=== PATIENT | female | born 1990 | race Caucasian/White ===

== ENCOUNTER 2020-04-23 07:20 | Inpatient (IN) | payer OTHER ==
[2020-04-23] MEDS ORDERED: Sodium Chloride 0.9% 10 ML Syringe FLUSH PRN (07:53)
[2020-04-23] MEDS ORDERED: Ondansetron 4 MG/2 ML SDV IVPUSH PRN (07:53)
[2020-04-23] MEDS ORDERED: Oxytocin/Lactated Ringers 10 UNIT/1,000 ML BAG IV SCH ×2 (08:00)
[2020-04-23] MEDS ORDERED: Lactated Ringers 1,000 ML IV SCH (08:00)
--- NOTE | 2020-04-23 10:50 | PCM.LDHP ---
L&D History of Present Illness - General Date of Service: 04/23/20 Admit Problem/Dx: Patient Status Order with Admit Dx/Problem 04/23/20 07:31 Patient Status [ADT] Routine 04/23/20 07:53 Patient Status [ADT] Routine Theresa is a 29-year-old 1 para 0 white female who is presently at 40-2/7 weeks gestational age with an EDGAR of 04/21/2020 who is admitted in active labor with the advanced cervical dilation 6 cm and questionable SROM. Source of Information: Patient History Limitations: Reports: No Limitations - History of Present Illness Introduction:: Theresa is a 29-year-old 1 para 0 white female who is presently at 40-2/7 weeks gestational age with an EDGAR of 04/21/2020 who is admitted in active labor with the advanced cervical dilation 6 cm and questionable SROM. She reports a gush of fluid sometime within the last 20 hours. She was able to rest however and did not have any other leakage of significance. She is started in labor at approximately 0100 hrs. on 04/23/2020 has progressed to izaiah every 3 to 4 minutes. Upon admission her cervix was found to be 6 cm dilated and significantly effaced. There is a bulging bag fierro that was detected upon admission. This has now been ruptured with resultant clear amniotic fluid. heart tones are reassuring. GILL NET STRINGER history: 1 para 0. EDGAR is 04/21/2020 as based upon a certain last menstrual period starting 07/08/2019 and supported by at least 3 ultrasounds on 09/26/2019, 09/09/2019 and 11/22/2019. Patient had menarche at age 15. Cycles q. 28 to 30 days. No control time conception. Last menstrual period was fairly certain. Cycles occur on a regular basis. No STIs or abnormal Pap smears noted. course: Patient's first visit was on 09/26/2019 at 10-2/7 weeks gestational age. She was seen on a very regular basis during the course of the . Her weight gain was approximately 37 pounds. Her vital signs remained stable throughout the course. Patient is interested in doing epidural if needed. She is group B strep negative. She had a flu shot during t he course of on 09/26/2019. She plans to breast-feed. Her [place] depression screen score on 11/22/2019 was 5/30. Patient had her Tdap immunization on 02/06/2020. She is rubella immune. Fundal height growth has been appropriate. heart tones have been within normal and send baby has been active by patient's history. Laboratory testing in shows blood to be AB positive. Antibody screen is negative. Initial first needle laboratory tests show hemoglobin at 13.8 g/dL weightless of 337,000. She is rubella immune. RPR is nonreactive. Urine culture was negative. Hepatitis B surface antigen and HIV assays were both negative. Her chlamydia and gonorrhea assays both negative. Second trimester hemoglobin was 12.4 g/dL and platelets were 299,000. Her 1 hour GTT was normal at 107. Group B strep screen was negative. Allergies: None Medications: 1. vitamins daily 2. Tums as needed for antacid Past medical history: Unremarkable Past surgical history: 1. Tonsillectomy 2011 Family history: Mother is alive and well on medications for high blood pressure. Father is alive and well. Brother is alive and well. Sister is alive and well. Maternal grandmother is alive at age 64 with a stent placed due to heart disease. Maternal grandfather is alive with history of type 2 diabetes that is diet-controlled. Paternal grandmother and paternal grandfather's history are unknown. She knows of no family history of cancer, bleeding or clotting disorders, anesthesia related issues, asthma or related problems. Social history: Patient is . is Kenneth Wong. She is a sales project coordinator. She is a college graduate. [place], [place]. She does not use any significant also alcohol, drugs or tobacco. Review of systems: In general patient has no complaints. Questionable gush of fluid. Suspect insensible urine loss. Contractions, baby is active. Skin: Negative Lungs: No infectious symptoms or shortness of breath Cardiovascular: No chest pain or exercise intolerance Breasts: Changes associated GI: Negative : changes Musculoskeletal: Negative Neurological: Negative Physical exam: In general the patient is well-developed, well-nourished, pleasant female of stated age in no acute distress. Skin is warm dry without lesions. HEENT, neck and back within normal limits. Lungs are clear with good breath sounds in all lung diallo. Cardiovascular exam shows regular and rhythm without murmurs. Breast exam deferred having been done at first visit and found to be normal it is not repeated at this time. Patient does plan to breast-feed. Abdomen is gravid with last fundal height at her last visit at 38+ centimeters. Baby in a cephalic presentation. Genital exam per digital evaluation shows 6 cm, 90% face, bulging bag fierro which is ruptured with resultant clear amniotic fluid. -3 station but well applied to the cervix, mid position, soft. Extremities and neurological exam are grossly within normal limits. - Related Data Allergies/Adverse Reactions: Allergies Allergy/AdvReac Type Severity Reaction Status Date / Time No Known Allergies Allergy Verified 04/23/20 08:05 Home Medications: Home Meds Pnv No.95/Ferrous Fum/Folic AC [ Tablet] 1 each PO DAILY 04/23/20 [History] Past Medical History GILL NET STRINGER History: Reports: - Past Surgical History HEENT Surgical History: Reports: Tonsillectomy Social & Family History - Family History Family Medical History: Noncontributory - Tobacco Use Smoking Status *Q: Never Smoker Second Hand Smoke Exposure: No - Caffeine Use Caffeine Use: Reports: None - Recreational Drug Use Recreational Drug Use: No H&P Review of Systems - Review of Systems: Review Of Systems: See Below L&D Exam - Exam Exam: See Below - Vital Signs Vital Signs: Last Vital Signs Temp 37.0 C 04/23/20 07:31 Pulse 76 04/23/20 07:31 Resp 14 04/23/20 07:31 BP 133/84 04/23/20 07:31 Pulse Ox 99 04/23/20 07:31 Weight: 95.753 kg - Patient Data Lab Results Last 24 hrs: Laboratory Results - last 24 hr 04/23/20 04/23/20 Range/Units 07:57 08:06 WBC 10.66 H (3.98-10.04) K/mm3 RBC 4.59 (3.98-5.22) M/mm3 Hgb 13.0 (11.2-15.7) gm/dl Hct 38.4 (34.1-44.9) % MCV 83.7 D (79.4-94.8) fl MCH 28.3 (25.6-32.2) pg MCHC 33.9 (32.2-35.5) g/dl RDW Std Deviation 41.3 (36.4-46.3) fL Plt Count 295 (182-369) K/mm3 MPV 10.7 (9.4-12.3) fl Neut % (Auto) 71.6 H (34.0-71.1) % Lymph % (Auto) 21.2 (19.3-51.7) % [place] % (Auto) 6.2 (4.7-12.5) % Eos % (Auto) 0.4 L (0.7-5.8) Baso % (Auto) 0.1 (0.1-1.2) % Neut # (Auto) 7.64 H (1.56-6.13) K/mm3 Lymph # (Auto) 2.26 (1.18-3.74) K/mm3 [place] # (Auto) 0.66 H (0.24-0.36) K/mm3 Eos # (Auto) 0.04 (0.04-0.36) K/mm3 Baso # (Auto) 0.01 (0.01-0.08) K/mm3 SARS-CoV-2 RNA (JEFF) Negative (NEGATIVE) Result Diagrams: 04/23/20 08:06 Problem List Initiated/Reviewed/Updated: Yes Orders Last 24hrs: Active Orders 24 hr Category Date Time Status Patient Status [ADT] Routine ADT 04/23/20 07:31 Active Patient Status [ADT] Routine ADT 04/23/20 07:53 Active Activity as Tolerated [RC] PFP Care 04/23/20 07:53 Active Communication Order [RC] ASDIRECTED Care 04/23/20 07:53 Active Heart Tones [RC] ASDIRECTED Care 04/23/20 07:54 Active Non Stress Test [RC] PER UNIT ROUTINE Care 04/23/20 07:31 Active Notify Provider [RC] PFP Care 04/23/20 07:53 Active Notify Provider [RC] PRN Care 04/23/20 07:53 Active Peripheral IV Care [RC] . DIRECTED Care 04/23/20 07:54 Active Vital Signs [RC] PER UNIT ROUTINE Care 04/23/20 07:31 Active Vital Signs [RC] PER UNIT ROUTINE Care 04/23/20 07:53 Active Regular Diet [DIET] Diet 04/23/20 Breakfast Active BLOOD BANK HOLD SPECIMEN [BBK] Stat Lab 04/23/20 07:53 Ordered RAPID PLASMA REAGIN,RPR [CHEM] Routine Lab 04/23/20 08:06 Received Lactated Ringers [Ringers, Lactated] 1,000 ml Med 04/23/20 08:00 Active IV ASDIRECTED Nalbuphine [Nubain] Med 04/23/20 07:53 Active 10 mg IVPUSH Q2H PRN Ondansetron [Zofran] Med 04/23/20 07:53 Active 4 mg IVPUSH Q4H PRN Oxytocin/Lactated Ringers [Pitocin in LR 10 Units/1,000 Med 04/23/20 08:00 Active ML] 10 unit in 1,000 ml IV .CONTINUOUS Oxytocin/Lactated Ringers [Pitocin in LR 10 Units/1,000 Med 04/23/20 08:00 Active ML] 10 unit in 1,000 ml IV TITRATE Sodium Chloride 0.9% [Saline Flush] Med 04/23/20 07:53 Active 10 ml FLUSH ASDIRECTED PRN Electronic Heart Tones Ext w TOCO [WOMSER] Oth 04/23/20 07:53 Ordered Routine Electronic Heart Tones Internal [WOMSER] Per Unit Oth 04/23/20 07:53 Ordered Routine Peripheral IV Insertion Adult [OM.PC] Routine Oth 04/23/20 07:53 Ordered Resuscitation Status Routine Resus Stat 04/23/20 07:31 Ordered Medication Orders Lactated Ringer's (Ringers, Lactated) 1,000 mls @ 100 mls/hr IV ASDIRECTED BOAZ Oxytocin/Lactated Ringer's (Pitocin In Lr 10 Units/1,000 Ml) 10 unit in 1,000 mls @ 500 mls/hr IV .CONTINUOUS BOAZ Oxytocin/Lactated Ringer's (Pitocin In Lr 10 Units/1,000 Ml) 10 unit in 1,000 mls @ 12 mls/hr IV TITRATE BOAZ; Protocol Nalbuphine HCl (Nubain) 10 mg IVPUSH Q2H PRN PRN Reason: Pain Ondansetron HCl (Zofran) 4 mg IVPUSH Q4H PRN PRN Reason: Nausea/Vomiting Sodium Chloride (Saline Flush) 10 ml FLUSH ASDIRECTED PRN PRN Reason: Keep Vein Open Assessment/Plan Comment:: 1. 40-2/7-week intrauterine , spontaneous labor, advanced cervical dilation, clear amniotic fluid, reassuring heart tones 2. Group B strep screen is negative 3. Patient plans to breast-feed. 4. Wishes natural labor but is okay with epidural if needed 5. Rubella immune 6. Patient is received her Tdap during the course of the 7. Risk Plan: 1. Anticipate normal spontaneous vaginal liver 2. Routine labor care 3. CBC, COVID testing, RPR upon admission per protocol 4. Epidural as needed for patient desire 5. Support patient is breast-feeding plan.
[2020-04-23] MEDS: Nalbuphine 10 MG/ML Syringe IVPUSH PRN ×2 (11:14→14:58)
[2020-04-23] MEDS ORDERED: Lidocaine 1% 50 ML MDV ONE (17:10)
--- NOTE | 2020-04-23 17:35 | PCM.SN.2 ---
- Free Text/Narrative Note: Delivery note: Theresa is a 29-year-old 1 now para 1-0-0-1 white female who is admitted this a.m. in active labor with advanced cervical dilation with a gestational age of 40-2/7 weeks with an EDGAR of 04/21/2020. She is 6 cm upon admission. She went slowly to 10 cm dilation by approximately 1500 hrs. Patient had 3 doses of Nubain during the course of labor for analgesia. She began pushing and at 1706 delivered a viable, dominguez, male infant with Apgars of 8 and 9, a weight of 7 #, 14 oz, (3570 grams), a length of 21 inches, direct occiput anterior position. The baby had nuchal cord x1 which was moderately tight and was reduced over the baby's body. After delivery the baby was placed on mom's ab domen. Umbilical cord was allowed to pulsate for 2 to 3 minutes. The Pitocin was increased to 500 cc an hour to facilitate increase in uterine tone and decrease likelihood of bleeding. The umbilical cord was allowed to pulsate and then was clamped x2 and cut by the baby's Father Kenneth. 3 blood vessels were noted in the cord. Cord blood was obtained. Patient was noted to have a second-degree perineal laceration which was repaired with 3-0 Monocryl after the infiltration of the area with approximately 10 cc of lidocaine 1%. Patient tolerated this well. Placenta delivered in a Masterson reason Tatian, appeared intact and complete and was discarded per patient desire. Patient plans to breast-feed. Estimated blood loss was 100 cc. Condition: Good
[2020-04-23] MEDS ORDERED: Ibuprofen 600 MG Tab PO PRN (17:52)
[2020-04-23] MEDS ORDERED: Benzocaine/Menthol 20%-0.5% Spray 56 GM Canister TOP PRN (17:52)
[2020-04-23] MEDS ORDERED: Docusate Sodium 100 MG Cap PO PRN (17:52)
[2020-04-23] MEDS ORDERED: Witch Hazel Medicated Pads 40/Jar TOP PRN (17:52)
[2020-04-23] MEDS ORDERED: Acetaminophen 325 MG Tab PO PRN (17:52)
--- NOTE | 2020-04-24 06:47 | PCM.SN.2 ---
- Free Text/Narrative Note: note: Patient is doing well in the period. Minimal lochia, voiding well, ambulated without problems. Nursing without concerns. Patient is afebrile, vital signs are stable Abdomen is flat, soft, uterus is below the umbilicus and is firm and nontender. Legs are nontender. Assessment: recovery going well. Plan: Routine care. Patient be discharged home within the next 24-48 hours.
[2020-04-24] MEDS ORDERED: FLU VACC QS2020-21(6MOS UP)/PF 60 MCG/0.5 ML SYRINGE IM ONE (09:00)
[2020-04-24] MEDS: Prenatal Multivitamin with Calcium/Folic Acid/Iron Tab PO SCH (09:33)
--- NOTE | 2020-04-25 06:38 | PCM.DCSUM1 ---
Discharge Summary - Hospital Course Free Text/Narrative:: Theresa is a 29-year-old 1 now para 1-0-0-1 white female who is admitted this a.m. in active labor with advanced cervical dilation with a gestational age of 40-2/7 weeks with an EDGAR of 04/21/2020. She is 6 cm upon admission. She went slowly to 10 cm dilation by approximately 1500 hrs. Patient had 3 doses of Nubain during the course of labor for analgesia. She began pushing and at 1706 delivered a viable, dominguez, male with Apgars of 8 and 9, a weight of 7 #, 14 oz, (3570 grams), a length of 21 inches, direct occiput anterior position. The baby had nuchal cord x1 which was moderately tight and was reduced over the baby's body. After delivery the baby was placed on mom's abdomen. Umbilical cord was allowed to pulsate for 2 to 3 minutes. The Pitocin was increased to 500 cc an hour to facilitate increase in uterine tone and de crease likelihood of bleeding. The umbilical cord was allowed to pulsate and then was clamped x2 and cut by the baby's Father Kenneth. 3 blood vessels were noted in the cord. Cord blood was obtained. Patient was noted to have a second-degree perineal laceration which was repaired with 3-0 Monocryl after the infiltration of the area with approximately 10 cc of lidocaine 1%. Patient tolerated this well. Placenta delivered in a Masterson presentation, appeared intact and complete and was discarded per patient desire. Patient plans to breast-feed. Estimated blood loss was 100 cc. patient is doing very well. She has had minimal lochia, is voiding well, ambulated without problems. Breast-feeding is going well. Patient is desiring discharge home. Condition: Good Diagnosis: Stroke: No - Discharge Data Discharge Date: 04/25/20 Discharge Disposition: Home, Self-Care 01 Condition: Good - Referral to Home Health Primary Care Physician: Valeri Miller PA-C - Patient Instructions Diet: Regular Diet as Tolerated (Nursing diet with increased calories and calcium as directed.) Activity: As Tolerated (No intercourse or tampons until bleeding resolves) Driving: May Drive Today Showering/Bathing: May Shower Showering/Bathing, Other: May take a bath - Discharge Plan Home Medications: Home Meds Pnv No.95/Ferrous Fum/Folic AC [ Tablet] 1 each PO DAILY 04/23/20 [History] Acetaminophen [Tylenol] 650 mg PO Q4H PRN tablet 04/25/20 [Rx] Docusate Sodium [Colace] 100 mg PO BID PRN cap 04/25/20 [Rx] Ibuprofen [Motrin] 600 mg PO Q4H PRN tablet 04/25/20 [Rx] Referrals: Sravan Valverde MD [Physician] - (Return to clinicDr. Valverde or Sarah Pedro, nurse practitioner-in 2 weeks.) - Discharge Summary/Plan Comment DC Time >30 min.: No Discharge Summary/Plan Comment: Discharge instructions: 1. Discharge home 2. Diet, activity and follow-up discussed with patient. Recommend nursing diet with increased calories and calcium. 3. Precautions given concern increased pain, bleeding, temperature, signs/symptoms of DVT/PE. 4. Medications per home medication was printed, discussed with and given to the patient. 5. Return to clinic-Dr. Valverde or Sarah Pedro-[facility] [place] in 2 weeks. Diagnosis: Term -delivered Condition: Good - Patient Data Vitals - Most Recent: Last Vital Signs Temp 36.7 C 04/25/20 02:49 Pulse 76 04/25/20 02:49 Resp 16 04/25/20 02:49 BP 118/73 04/25/20 02:49 Pulse Ox 98 04/25/20 02:49 Weight - Most Recent: 95.753 kg I&O - Last 24 hours: Intake & Output 04/24/20 04/24/20 04/25/20 14:59 22:59 06:59 Intake Total 0 Balance 0 Med Orders - Current: Current Medications Acetaminophen (Tylenol) 650 mg PO Q4H PRN PRN Reason: mild pain or fever Benzocaine/Menthol (Dermoplast Pain Relief [place]) 0 gm TOP ASDIRECTED PRN PRN Reason: Perineal Comfort Measure Last Admin: 04/23/20 19:34 Dose: 1 can Documented by: Docusate Sodium (Colace) 100 mg PO BID PRN PRN Reason: Constipation Ibuprofen (Motrin) 600 mg PO Q4H PRN PRN Reason: Mild pain or fever Last Admin: 04/23/20 19:33 Dose: 600 mg Documented by: Maria Esther Multivit/[place]/Iron/Folic Ac ( Plus Iron) 1 each PO DAILY BOAZ Last Admin: 04/24/20 09:33 Dose: 1 each Documented by: William Arevalo ([facility]) 1 pad TOP ASDIRECTED PRN PRN Reason: Perineal Comfort Measure Last Admin: 04/23/20 19:34 Dose: 1 container Documented by: Discontinued Medications Lactated Ringer's (Ringers, Lactated) 1,000 mls @ 100 mls/hr IV ASDIRECTED BOAZ Last Admin: 04/23/20 14:36 Dose: 100 mls/hr Documented by: Oxytocin/Lactated Ringer's (Pitocin In Lr 10 Units/1,000 Ml) 10 unit in 1,000 mls @ 500 mls/hr IV .CONTINUOUS BOAZ Last Admin: 04/23/20 17:29 Dose: 500 mls/hr Documented by: Oxytocin/Lactated Ringer's (Pitocin In Lr 10 Units/1,000 Ml) 10 unit in 1,000 mls @ 12 mls/hr IV TITRATE BOAZ; Protocol Influenza Virus Vaccine (Fluzone Quad Syringe) 60 mcg IM .ONCE ONE Stop: 04/24/20 09:01 Last Admin: 04/24/20 13:24 Dose: 60 mcg Documented by: Lidocaine HCl (Xylocaine 1%) Confirm Administered Dose 50 ml .ROUTE .STK-MED ONE Stop: 04/23/20 17:11 Last Admin: 04/23/20 17:30 Dose: 50 ml Documented by: Nalbuphine HCl (Nubain) 10 mg IVPUSH Q2H PRN PRN Reason: Pain Last Admin: 04/23/20 14:58 Dose: 10 mg Documented by: Ondansetron HCl (Zofran) 4 mg IVPUSH Q4H PRN PRN Reason: Nausea/Vomiting Sodium Chloride (Saline Flush) 10 ml FLUSH ASDIRECTED PRN PRN Reason: Keep Vein Open
[2020-04-25] MEDS: Prenatal Multivitamin with Calcium/Folic Acid/Iron Tab PO SCH (11:22)
== END 2020-04-25 11:15 | disposition home or self-care (01) | DRG 807 ==
LOC: JD.OBCHECK 07:20 → JD.OB 07:21 → JD.OBCHECK 07:53 → OBSVTOIN 17:06 → JD.OB 17:07
PROVIDERS: ADMIT Obstetrics & Gynecology; ATTEND Obstetrics & Gynecology
PROC: 10E0XZZ Delivery of Products of Conception, External Approach (ICD-10-PCS; principal; 2020-04-23)
PROC: 0KQM0ZZ Repair Perineum Muscle, Open Approach (ICD-10-PCS; 2020-04-23)
PROC: 10907ZC Drainage of Amniotic Fluid, Therapeutic from Products of Conception, Via Natural or Artificial Opening (ICD-10-PCS; 2020-04-23)
PROC: 3E02340 Introduction of Influenza Vaccine into Muscle, Percutaneous Approach (ICD-10-PCS; 2020-04-24)
DX: O69.1XX0 Labor and delivery complicated by cord around neck, with compression, not applicable or unspecified (principal); Z37.0 Single live birth; Z3A.40 40 weeks gestation of pregnancy; O70.1 Second degree perineal laceration during delivery; Z20.828 Contact with and (suspected) exposure to other viral communicable diseases; Z23 Encounter for immunization
CPT/HCPCS: 36415; 59025; 59409; 85025; 86592; 90686; A9270-GY; G0008; J2001; J2300; J2590; J7120; U0002

== ENCOUNTER 2022-05-23 06:40 | Inpatient (IN) | payer BC ==
[~2022-05-23 06:40] MED LIST: Bupivacaine 0.25% 10 ML SDV ONE
[2022-05-23] MEDS ORDERED: Nalbuphine HCl 10 MG/ 1ML Amp IVPUSH PRN (06:48)
[2022-05-23] MEDS ORDERED: Ondansetron 4 MG/2 ML SDV IVPUSH PRN (06:48)
[2022-05-23] MEDS ORDERED: Calcium Carbonate 500 MG Tab.Chew PO PRN (06:48)
[2022-05-23] MEDS ORDERED: Sodium Chloride 0.9% 10 ML Syringe FLUSH PRN (06:48)
[2022-05-23] MEDS ORDERED: Sodium Chloride 0.9% 10 ML Syringe FLUSH SCH (09:00)
[2022-05-23] MEDS: Lactated Ringers 1,000 ML IV SCH ×2 (10:19→10:41)
[2022-05-23] MEDS ORDERED: fentaNYL 100 MCG/2 ML SDV EPIDUR PRN (10:30)
[2022-05-23] MEDS ORDERED: diphenhydrAMINE 50 MG/ML SDV IVPUSH PRN (10:30)
[2022-05-23] MEDS ORDERED: ePHEDrine 50 MG/ML SDV IVPUSH PRN (10:30)
[2022-05-23] MEDS ORDERED: Bupivacaine/fentaNYL/NS 100 ML Bag EPIDUR PRN (10:30)
[2022-05-23] MEDS ORDERED: Oxytocin/Lactated Ringers 10 UNIT/1,000 ML BAG IV SCH (13:45)
[2022-05-23] MEDS ORDERED: Witch Hazel Medicated Pads 40/Jar TOP PRN (14:44)
[2022-05-23] MEDS ORDERED: Acetaminophen 325 MG Tab PO PRN (14:44)
[2022-05-23] MEDS ORDERED: Docusate Sodium 100 MG Cap PO PRN (14:44)
[2022-05-23] MEDS ORDERED: Benzocaine/Menthol 20%-0.5% Spray 78 GM Cannister TOP PRN (14:44)
[2022-05-23] MEDS ORDERED: Ibuprofen 600 MG Tab PO PRN (14:44)
[2022-05-24] MEDS ORDERED: Prenatal Multivitamin with Calcium/Folic Acid/Iron Tab PO SCH (09:00)
[2022-05-24] MEDS ORDERED: Measles, Mumps & Rubella Vaccine 0.5 ML SDV SUBCUT ONE (14:42)
== END 2022-05-24 15:30 | disposition home or self-care (01) | DRG 560 ==
LOC: JD.OBCHECK 06:40 → JD.OB 06:44 → JD.OBCHECK 06:52 → JD.OB 06:53 → OBSVTOIN 13:58 → JD.OB 13:59
PROVIDERS: ADMIT Obstetrics & Gynecology; ATTEND Obstetrics & Gynecology
PROC: 10E0XZZ Delivery of Products of Conception, External Approach (ICD-10-PCS; principal; 2022-05-23)
PROC: 10907ZC Drainage of Amniotic Fluid, Therapeutic from Products of Conception, Via Natural or Artificial Opening (ICD-10-PCS; 2022-05-23)
PROC: 0KQM0ZZ Repair Perineum Muscle, Open Approach (ICD-10-PCS; 2022-05-23)
PROC: 3E0R3BZ Introduction of Anesthetic Agent into Spinal Canal, Percutaneous Approach (ICD-10-PCS; 2022-05-23)
PROC: 00HU33Z Insertion of Infusion Device into Spinal Canal, Percutaneous Approach (ICD-10-PCS; 2022-05-23)
PROC: 3E02340 Introduction of Influenza Vaccine into Muscle, Percutaneous Approach (ICD-10-PCS; 2022-05-24)
DX: O48.0 Post-term pregnancy (principal); Z37.0 Single live birth; Z3A.40 40 weeks gestation of pregnancy; O70.1 Second degree perineal laceration during delivery; Z23 Encounter for immunization
CPT/HCPCS: 01967; 36415; 51701; 59025; 59409; 85025; 86592; 90471; 90707; A9270-GY; G0008; J2590; J3010; J3490; J7120

== ENCOUNTER 2024-01-25 16:53 | Emergency (ER) | payer BC ==
[2024-01-25 18:21] LABS: BASOPHILS PERCENT AUTO 0.1 % (0.0-1.0); EOSINOPHILS ABSOLUTE AUTO 0.1 K/mm3 (0.0-0.4); EOSINOPHILS PERCENT AUTO 1.1 % (0.0-6.0); HEMATOCRIT 43.8 % (37.0-47.0); HEMOGLOBIN 14.8 gm/dl (12.0-16.0); IMMATURE GRAN ABSOLUTE AUTO 0.02 K/mm3 (0.00-0.05); IMMATURE GRAN PERCENT AUTO 0.2 % (0.0-0.4); LYMPHOCYTES ABSOLUTE AUTO 2.1 K/mm3 (1.0-4.8); LYMPHOCYTES PERCENT AUTO 25.3 % (24.0-44.0); MEAN CORPUSCULAR HEMOGLOBIN 28.1 pg (28.0-32.0); MEAN CORPUSCULAR HGB CONC 33.8 g/dl (32.0-36.0); MEAN CORPUSCULAR VOLUME 83.1 fl (83.0-99.0); MEAN PLATELET VOLUME 9.2 fl (9.4-12.3); MONOCYTES ABSOLUTE AUTO 0.4 K/mm3 (0.0-0.8); MONOCYTES PERCENT AUTO 5.3 % (0.0-8.0); NEUTROPHILS ABSOLUTE AUTO 5.5 K/mm3 (1.8-7.7); PLATELET COUNT,PLT 332 K/mm3 (150-400); RED BLOOD CELL COUNT 5.27 M/mm3 (4.10-5.30); WHITE BLOOD CELL COUNT,WBC 8.09 K/mm3 (3.9-11.3)
[2024-01-25 18:44] LABS: A/G RATIO 1.1 (1-2); ALBUMIN 3.9 g/dl (3.4-5.0); ANION GAP 11.7 (5-15); BILIRUBIN TOTAL 0.5 mg/dL (0.2-1.0); CALCIUM 8.8 mg/dL (8.5-10.1); EST CRCL DRUG DOSING (CG) 73.35 mL/min; POTASSIUM,K 3.7 mEq/L (3.5-5.1); PROTEIN TOTAL,TP 7.5 g/dl (6.4-8.2)
[2024-01-25] MEDS: methylPREDNISolone Sodium Succinate 125 MG/2 ML SDV IVPUSH ONE (20:38)
[2024-01-25] MEDS: diphenhydrAMINE 50 MG/ML SDV IVPUSH ONE (20:38)
== END 2024-01-25 21:00 | disposition home or self-care (01) ==
LOC: JD.ED 16:53
DX: L23.89 Allergic contact dermatitis due to other agents (principal); Z79.899 Other long term (current) drug therapy
CPT/HCPCS: 36415; 80053; 85025; 96374; 96375; 99283; J1200; J2919; 99284